=== PATIENT | female | born 1950 | race Caucasian/White ===

== ENCOUNTER 2016-07-26 19:20 | Emergency (ER) | payer BC ==
[~2016-07-26] VITALS: Ht 170.2 cm; Wt 124.7 kg
[~2016-07-26 19:20] MED LIST: ARTHRITIS MED; ASPIR-LOW81 MG PO; ESCITALOPRAM OX20 MG PO; FUROSEMIDE20 MG PO; HYDROCODON-ACE1 EAC7 PO; KLONOPIN0.5 M1 PO; LETROZOLE2.5 MG PO; MELOXICAM7.5 MG PO; NORCO 5/3251 TABLET PO; PEN-VEE K,VEET500 MG PO; PRAVASTATIN SOD80 MG PO; SIMVASTATIN; TRAMADOL HCL50 MG PO
[2016-07-26 21:17] VITALS: BP 151/61
== END 2016-07-26 21:21 | disposition home or self-care (01) ==
LOC: EME 19:20
PROC: 0HQKXZZ Repair Right Lower Leg Skin, External Approach (ICD-10-PCS; principal; 2016-07-26)
DX: I83.891 Varicose veins of right lower extremity with other complications (principal); E11.9 Type 2 diabetes mellitus without complications
CPT/HCPCS: 80048; 85027; 99281; 99284

== ENCOUNTER 2016-12-09 12:59 | Emergency (ER) | payer BC ==
[~2016-12-09] VITALS: Ht 170.2 cm; Wt 120.4 kg
[2016-12-09] MEDS ORDERED: ULTRAM50 MG PO (15:44)
[2016-12-09 16:17] VITALS: BP 146/85
== END 2016-12-09 16:18 | disposition home or self-care (01) ==
LOC: EME 12:59
PROC: 2W3DX1Z Immobilization of Left Lower Arm using Splint (ICD-10-PCS; principal; 2016-12-09)
DX: S63.502A Unspecified sprain of left wrist, initial encounter (principal); S80.02XA Contusion of left knee, initial encounter; S00.33XA Contusion of nose, initial encounter; W01.190A Fall on same level from slipping, tripping and stumbling with subsequent striking against furniture, initial encounter; Y93.01 Activity, walking, marching and hiking; Y92.039 Unspecified place in apartment as the place of occurrence of the external cause; I10 Essential (primary) hypertension; E78.00 Pure hypercholesterolemia, unspecified; E11.9 Type 2 diabetes mellitus without complications
CPT/HCPCS: 70160; 73090; 73130; 73564; 99281; 99283

== ENCOUNTER 2017-04-19 18:18 | Emergency (ER) | payer BC ==
[~2017-04-19] VITALS: Ht 170.2 cm; Wt 123.9 kg
[~2017-04-19 18:18] MED LIST changes: +ULTRAM50 MG PO
[2017-04-19] MEDS ORDERED: ULTRAM50 MG PO (19:10)
[2017-04-19] MEDS ORDERED: BACTRIM,SEPT1 TABLET PO (19:10)
[2017-04-19] MEDS ORDERED: KEFLEX500 MG PO (19:10)
[2017-04-19 19:20] VITALS: BP 151/70
== END 2017-04-19 19:26 | disposition home or self-care (01) ==
LOC: EME 18:18
DX: L08.9 Local infection of the skin and subcutaneous tissue, unspecified (principal); Z79.82 Long term (current) use of aspirin
CPT/HCPCS: 99281; 99283